=== PATIENT | male | born 1970 | race Caucasian/White ===

== ENCOUNTER 2024-01-24 13:39 | Emergency (ER) | payer MEDICAID ==
[~2024-01-24] VITALS: Ht 177.8 cm; Wt 84.0 kg
[2024-01-24 15:17] LABS: *AMPHETAMINES SCREEN URINE NEGATIVE (NEGATIVE); *BARBITURATES SCREEN URINE NEGATIVE (NEGATIVE); *BENZODIAZEPINES SCREEN URINE NEGATIVE (NEGATIVE); *COCAINE SCREEN URINE NEGATIVE (NEGATIVE); CANNABINOID URINE SCREEN NEGATIVE (NEGATIVE); METHADONE URINE SCREEN NEGATIVE (NEGATIVE); OPIATES URINE SCREEN NEGATIVE (NEGATIVE); PHENCYCLIDINE URINE SCREEN NEGATIVE (NEGATIVE)
[2024-01-24 15:18] LABS: ECSTASY MDMA SCREEN URINE NEGATIVE (NEGATIVE)
[2024-01-24] MEDS: LORAZEPAM 1MG TABLET PO ONE (16:00)
[2024-01-24 16:02] LABS: BASOPHILS % 0.8 % (0.0-2.0); EOSINOPHILS % 0.8 % (0.0-5.0); HEMATOCRIT. 46.8 % (42.0-52.0); HEMOGLOBIN. 15.9 g/dL (14.0-18.0); LYMPHOCYTES % 39.1 % (20.0-50.0); MEAN CORPUSCULAR HEMOGLOBIN 31.5 pg (28.0-32.0); MEAN CORPUSCULAR VOLUME 92.7 fL (80.0-94.0); MEAN PLATELET VOLUME 7.6 fl (7.4-10.4); MONOCYTES % 4.6 % (2.0-8.0); NEUTROPHILS % 54.7 % (40.0-76.0); PLATELET 219 x1000/uL (130-400); RED BLOOD CELL COUNT 5.05 mill/uL (4.7-6.1); WHITE BLOOD COUNT 6.5 x1000/uL (4.5-11.0)
[2024-01-24 16:14] LABS: CHLORIDE 114 mEq/L (98-107); POTASSIUM 3.8 mEq/L (3.5-5.1); SODIUM 145 mEq/L (136-145)
[2024-01-24 16:15] LABS: CARBON DIOXIDE 26 mEq/L (21-32)
[2024-01-24 16:16] LABS: CALCIUM 9.6 mg/dL (8.7-10.4)
[2024-01-24 16:20] LABS: CREATININE 0.9 mg/dL (0.6-1.3); GLUCOSE 112 mg/dL (70-105)
[2024-01-24 16:21] LABS: UREA NITROGEN BLOOD 10 mg/dL (9-23)
[2024-01-24 16:22] LABS: ACETAMINOPHEN < 2 ug/mL (10-30)
[2024-01-24 16:36] LABS: ETHANOL BLOOD 406 mg/dL (<10)
[2024-01-24] MEDS: DIPHENHYDRAMINE 50MG/ML VIAL IM ONE (19:48)
[2024-01-24] MEDS: HALOPERIDOL LACTATE 5MG/ML VIAL IM ONE (19:49)
[2024-01-24] MEDS: LORAZEPAM 2MG/ML INJ IM ONE (19:49)
[2024-01-24 20:30] VITALS: O2SAT 98
[2024-01-25] MEDS ORDERED: LORAZEPAM 2MG/ML INJ IM ONE (08:45)
[2024-01-25] MEDS: LORAZEPAM 2MG/ML INJ IM NR (09:05)
[2024-01-25 11:31] VITALS: BP 110/60; PULSE 77; RESP 18; TEMP 98.9
[2024-01-25] MEDS: FLUOXETINE HCL 20MG CAPSULE PO SCH (12:28)
[2024-01-25] MEDS ORDERED: GABAPENTIN 300MG CAPSULE PO SCH (14:00)
[2024-01-25] MEDS ORDERED: TRAZODONE HCL 50MG TABLET PO SCH (21:00)
== END 2024-01-25 13:08 | disposition home or self-care (01) ==
LOC: ER 14:04
DX: R45.851 Suicidal ideations (principal); E11.9 Type 2 diabetes mellitus without complications; Z20.822 Contact with and (suspected) exposure to COVID-19
CPT/HCPCS: 80305; 80048; 80307; 80329; 80320 ×2; 85025; 36415 ×2; 96372 ×2; 99285; 87426; J1200; J1630; J2060 ×2; G0480

== ENCOUNTER 2024-01-27 11:04 | Emergency (ER) | payer MEDICAID ==
[~2024-01-27] VITALS: Ht 170.2 cm; Wt 78.0 kg
[2024-01-27 11:47] LABS: CLARITY URINE CLEAR (CLEAR); COLOR URINE YELLOW (YELLOW); GLUCOSE URINE NEGATIVE (NEGATIVE); KETONES URINE NEGATIVE (NEGATIVE); LEUKOCYTE ESTERASE URINE NEGATIVE (NEGATIVE); NITRITE URINE NEGATIVE (NEGATIVE); OCCULT BLOOD URINE NEGATIVE (NEGATIVE); PH URINE 5.5 (4.5-8.0); PROTEIN URINE NEGATIVE (NEGATIVE); SPECIFIC GRAVITY URINE 1.007 (1.005-1.030); UROBILINOGEN URINE 0.2 E.U./dL (0.2-1.0)
[2024-01-27 12:04] LABS: *AMPHETAMINES SCREEN URINE NEGATIVE (NEGATIVE); *BARBITURATES SCREEN URINE NEGATIVE (NEGATIVE); *BENZODIAZEPINES SCREEN URINE NEGATIVE (NEGATIVE); *COCAINE SCREEN URINE NEGATIVE (NEGATIVE)
[2024-01-27 12:05] LABS: CANNABINOID URINE SCREEN NEGATIVE (NEGATIVE); ECSTASY MDMA SCREEN URINE NEGATIVE (NEGATIVE); METHADONE URINE SCREEN NEGATIVE (NEGATIVE); OPIATES URINE SCREEN NEGATIVE (NEGATIVE); PHENCYCLIDINE URINE SCREEN NEGATIVE (NEGATIVE)
[2024-01-27 12:10] VITALS: O2SAT 98
[2024-01-27 12:27] LABS: BASOPHILS % 1.1 % (0.0-2.0); EOSINOPHILS % 1.9 % (0.0-5.0); HEMATOCRIT. 48.6 % (42.0-52.0); LYMPHOCYTES % 45.7 % (20.0-50.0); MEAN CORPUSCULAR HEMOGLOBIN 31.6 pg (28.0-32.0); MEAN CORPUSCULAR VOLUME 90.4 fL (80.0-94.0); MEAN PLATELET VOLUME 7.7 fl (7.4-10.4); MONOCYTES % 6.6 % (2.0-8.0); NEUTROPHILS % 44.7 % (40.0-76.0); PLATELET 242 x1000/uL (130-400); RED BLOOD CELL COUNT 5.37 mill/uL (4.7-6.1); RED CELL DISTRIBUTION WIDTH 12.2 % (11.6-14.6)
[2024-01-27 12:32] LABS: CARBON DIOXIDE 27 mEq/L (21-32); CHLORIDE 107 mEq/L (98-107); POTASSIUM 3.7 mEq/L (3.5-5.1); SODIUM 146 mEq/L (136-145)
[2024-01-27 12:33] LABS: CALCIUM 9.7 mg/dL (8.7-10.4)
[2024-01-27 12:37] LABS: CREATININE 0.9 mg/dL (0.6-1.3)
[2024-01-27 12:38] LABS: GLUCOSE 105 mg/dL (70-105); UREA NITROGEN BLOOD 10 mg/dL (9-23)
[2024-01-27 12:39] LABS: ACETAMINOPHEN < 2 ug/mL (10-30)
[2024-01-27 12:47] LABS: ETHANOL BLOOD 358 mg/dL (<10)
[2024-01-27] MEDS: ONDANSETRON 4MG ODT PO ONE (15:58)
[2024-01-27] MEDS: CHLORDIAZEPOXIDE 25MG CAPSULE PO ONE (17:45)
[2024-01-27] MEDS: LORAZEPAM 2MG/ML INJ IM ONE (22:01)
[2024-01-27] MEDS: HALOPERIDOL LACTATE 5MG/ML VIAL IM ONE (22:01)
[2024-01-28] MEDS: TRAZODONE HCL 50MG TABLET PO SCH ×2 (00:22→21:17)
[2024-01-28] MEDS: DIPHENHYDRAMINE 25MG CAPSULE PO ONE (05:00)
[2024-01-28] MEDS: CHLORDIAZEPOXIDE 25MG CAPSULE PO ONE (07:06)
[2024-01-28] MEDS: HALOPERIDOL LACTATE 5MG/ML VIAL IM ONE (08:47)
[2024-01-28] MEDS: LORAZEPAM 2MG/ML INJ IM ONE (08:47)
[2024-01-28] MEDS: LORAZEPAM 1MG TABLET PO ONE ×2 (13:43→17:25)
[2024-01-28] MEDS: ONDANSETRON 4MG ODT PO ONE (15:05)
[2024-01-28 21:06] VITALS: BP 132/85; PULSE 89; RESP 16; TEMP 98.6
== END 2024-01-28 21:32 ==
LOC: ER 11:04
DX: R45.851 Suicidal ideations (principal); F11.10 Opioid abuse, uncomplicated; I10 Essential (primary) hypertension; Z20.822 Contact with and (suspected) exposure to COVID-19; Z98.890 Other specified postprocedural states
CPT/HCPCS: 80305; 80048; 81003; 80307; 80329; 80320 ×2; 85025; 36415 ×2; 96372 ×2; 99285; 87426; Q0162 ×2; J1630 ×2; J2060 ×2; Q0163; Z7610 ×2; G0480

== ENCOUNTER 2024-01-31 17:58 | Emergency (ER) | payer MEDICAID ==
[~2024-01-31] VITALS: Ht 177.8 cm; Wt 93.0 kg
[2024-01-31 18:00] VITALS: O2SAT 96
[2024-01-31 19:12] LABS: BASOPHILS % 0.8 % (0.0-2.0); HEMATOCRIT. 43.1 % (42.0-52.0); HEMOGLOBIN. 14.6 g/dL (14.0-18.0); LYMPHOCYTES % 43.9 % (20.0-50.0); MEAN CORPUSCULAR HEMOGLOBIN 31.9 pg (28.0-32.0); MEAN CORPUSCULAR HGB CONC 33.8 g/dL (31.0-37.0); MEAN CORPUSCULAR VOLUME 94.3 fL (80.0-94.0); MEAN PLATELET VOLUME 7.8 fl (7.4-10.4); MONOCYTES % 5.7 % (2.0-8.0); NEUTROPHILS % 47.6 % (40.0-76.0); PLATELET 193 x1000/uL (130-400); RED BLOOD CELL COUNT 4.58 mill/uL (4.7-6.1); RED CELL DISTRIBUTION WIDTH 12.1 % (11.6-14.6); WHITE BLOOD COUNT 5.8 x1000/uL (4.5-11.0)
[2024-01-31 19:16] LABS: CHLORIDE 108 mEq/L (98-107); POTASSIUM 4.1 mEq/L (3.5-5.1); SODIUM 143 mEq/L (136-145)
[2024-01-31 19:17] LABS: CARBON DIOXIDE 25 mEq/L (21-32)
[2024-01-31 19:18] LABS: CALCIUM 8.9 mg/dL (8.7-10.4)
[2024-01-31 19:22] LABS: CREATININE 0.9 mg/dL (0.6-1.3); GLUCOSE 92 mg/dL (70-105); UREA NITROGEN BLOOD 15 mg/dL (9-23)
[2024-01-31 19:23] LABS: ETHANOL BLOOD 256 mg/dL (<10)
[2024-01-31] MEDS: LORAZEPAM 2MG/ML INJ IV ONE (20:41)
[2024-01-31] MEDS: SODIUM CHLORIDE 0.9% 1,000 ML IV ONE (20:41)
[2024-01-31 21:54] LABS: *AMPHETAMINES SCREEN URINE NEGATIVE (NEGATIVE); *BARBITURATES SCREEN URINE NEGATIVE (NEGATIVE); *BENZODIAZEPINES SCREEN URINE PRESUMPTIVE POSITIVE (NEGATIVE); *COCAINE SCREEN URINE NEGATIVE (NEGATIVE); CANNABINOID URINE SCREEN NEGATIVE (NEGATIVE); ECSTASY MDMA SCREEN URINE CONF.TEST INDICATED (NEGATIVE); METHADONE URINE SCREEN NEGATIVE (NEGATIVE); OPIATES URINE SCREEN NEGATIVE (NEGATIVE); PHENCYCLIDINE URINE SCREEN NEGATIVE (NEGATIVE)
[2024-02-01 00:30] VITALS: BP 132/91; PULSE 97; RESP 18; TEMP 98.1
== END 2024-02-01 01:26 | disposition home or self-care (01) ==
LOC: ER 17:58
DX: F10.229 Alcohol dependence with intoxication, unspecified (principal); F32.9 Major depressive disorder, single episode, unspecified; Y90.9 Presence of alcohol in blood, level not specified
CPT/HCPCS: 80305; 80048; 80320; 85025; 36415; 96361; 96374; 99285; J2060; J7030; G0480

== ENCOUNTER 2024-05-19 16:33 | Emergency (ER) | payer MEDICAID ==
[~2024-05-19] VITALS: Ht 175.3 cm; Wt 90.0 kg
[2024-05-19 16:35] VITALS: O2SAT 94
[2024-05-19 20:25] LABS: BASOPHILS % 1.1 % (0.0-2.0); EOSINOPHILS % 3.1 % (0.0-5.0); HEMATOCRIT. 42.2 % (42.0-52.0); HEMOGLOBIN. 14.3 g/dL (14.0-18.0); LYMPHOCYTES % 33.6 % (20.0-50.0); MEAN CORPUSCULAR HEMOGLOBIN 32.4 pg (28.0-32.0); MEAN CORPUSCULAR HGB CONC 33.9 g/dL (31.0-37.0); MEAN CORPUSCULAR VOLUME 95.6 fL (80.0-94.0); MEAN PLATELET VOLUME 8.4 fl (7.4-10.4); MONOCYTES % 5.5 % (2.0-8.0); NEUTROPHILS % 56.7 % (40.0-76.0); PLATELET 204 x1000/uL (130-400); RED BLOOD CELL COUNT 4.41 mill/uL (4.7-6.1); RED CELL DISTRIBUTION WIDTH 13.8 % (11.6-14.6); WHITE BLOOD COUNT 5.5 x1000/uL (4.5-11.0)
[2024-05-19 20:34] LABS: CHLORIDE 113 mEq/L (98-107); POTASSIUM 3.6 mEq/L (3.5-5.1); SODIUM 146 mEq/L (136-145)
[2024-05-19 20:35] LABS: CALCIUM 8.6 mg/dL (8.7-10.4); CARBON DIOXIDE 26 mEq/L (21-32)
[2024-05-19 20:40] LABS: CREATININE 0.7 mg/dL (0.6-1.3); GLUCOSE 114 mg/dL (70-105); UREA NITROGEN BLOOD 16 mg/dL (9-23)
[2024-05-19 20:42] LABS: ACETAMINOPHEN < 2 ug/mL (10-30)
[2024-05-19 20:50] LABS: ETHANOL BLOOD 356 mg/dL (<10)
[2024-05-19] MEDS: APIXABAN 5 MG TABLET PO SCH (21:00)
[2024-05-20 05:01] LABS: CLARITY URINE CLEAR (CLEAR); COLOR URINE YELLOW (YELLOW); GLUCOSE URINE NEGATIVE (NEGATIVE); KETONES URINE TRACE (NEGATIVE); LEUKOCYTE ESTERASE URINE NEGATIVE (NEGATIVE); NITRITE URINE NEGATIVE (NEGATIVE); OCCULT BLOOD URINE NEGATIVE (NEGATIVE); PH URINE 5.5 (4.5-8.0); PROTEIN URINE NEGATIVE (NEGATIVE); SPECIFIC GRAVITY URINE 1.026 (1.005-1.030); UROBILINOGEN URINE 0.2 E.U./dL (0.2-1.0)
[2024-05-20 05:09] LABS: *AMPHETAMINES SCREEN URINE PRESUMPTIVE POSITIVE (NEGATIVE)
[2024-05-20 05:10] LABS: *BARBITURATES SCREEN URINE NEGATIVE (NEGATIVE); *BENZODIAZEPINES SCREEN URINE NEGATIVE (NEGATIVE); *COCAINE SCREEN URINE NEGATIVE (NEGATIVE); CANNABINOID URINE SCREEN PRESUMPTIVE POSITIVE (NEGATIVE); ECSTASY MDMA SCREEN URINE CONF.TEST INDICATED (NEGATIVE); METHADONE URINE SCREEN NEGATIVE (NEGATIVE); OPIATES URINE SCREEN NEGATIVE (NEGATIVE); PHENCYCLIDINE URINE SCREEN NEGATIVE (NEGATIVE)
[2024-05-20 10:24] LABS: TROPONIN I HIGH SENSITIVITY < 4 ng/L (3.0-53)
[2024-05-20] MEDS: LORAZEPAM 1MG TABLET PO ONE (10:42)
[2024-05-20 12:21] LABS: TROPONIN I HIGH SENSITIVITY < 4 ng/L (3.0-53)
[2024-05-20] MEDS ORDERED: L10 MT (12:31)
[2024-05-20 12:36] VITALS: BP 124/80; PULSE 90; RESP 16; TEMP 37.05852; O2SAT 99
[2024-05-21] MEDS ORDERED: FLUOXETINE HCL 10 MG CAPSULE PO SCH (09:00)
== END 2024-05-20 12:49 | disposition home or self-care (01) ==
LOC: ER 16:33
DX: R45.851 Suicidal ideations (principal); F10.229 Alcohol dependence with intoxication, unspecified; F32.9 Major depressive disorder, single episode, unspecified; Z86.711 Personal history of pulmonary embolism; Z20.822 Contact with and (suspected) exposure to COVID-19; Y90.8 Blood alcohol level of 240 mg/100 ml or more
CPT/HCPCS: 36415; 71045; 80048; 80305; 80307; 80320; 80329; 81003; 84484; 85025; 85379; 87426; 93005; 99285; G0480

== ENCOUNTER 2024-09-17 18:55 | Emergency (ER) | payer MEDICAID ==
[~2024-09-17] VITALS: Ht 177.8 cm; Wt 85.0 kg
[~2024-09-17 18:55] MED LIST: L10 MT
[2024-09-17 18:58] VITALS: BP 130/74; PULSE 76; RESP 18; TEMP 98.7; O2SAT 99
[2024-09-17 23:43] LABS: CHLORIDE 107 mEq/L (98-107); POTASSIUM 4.4 mEq/L (3.5-5.1); SODIUM 143 mEq/L (136-145)
[2024-09-17 23:44] LABS: CALCIUM 8.8 mg/dL (8.7-10.4); CARBON DIOXIDE 23 mEq/L (21-32); HEMATOCRIT 43.4 % (42.0-52.0); HEMOGLOBIN 14.9 g/dL (14.0-18.0); MEAN CORPUSCULAR HEMOGLOBIN 32.3 pg (28.0-32.0); MEAN CORPUSCULAR HGB CONC 34.3 g/dL (31.0-37.0); MEAN CORPUSCULAR VOLUME 94.1 fL (80.0-94.0); PLATELET 197 x1000/uL (130-400); RED BLOOD CELL COUNT 4.61 mill/uL (4.7-6.1); RED CELL DISTRIBUTION WIDTH 12.9 % (11.6-14.6); WHITE BLOOD COUNT 5.2 x1000/uL (4.5-11.0)
[2024-09-17 23:49] LABS: CREATININE 0.8 mg/dL (0.6-1.3); GLUCOSE 80 mg/dL (70-105); UREA NITROGEN BLOOD 11 mg/dL (9-23)
[2024-09-17 23:50] LABS: ETHANOL BLOOD 232 mg/dL (<10)
== END 2024-09-18 05:25 | disposition home or self-care (01) ==
LOC: ER 18:55
DX: F10.129 Alcohol abuse with intoxication, unspecified (principal); E11.9 Type 2 diabetes mellitus without complications; Y90.9 Presence of alcohol in blood, level not specified; Z88.0 Allergy status to penicillin
CPT/HCPCS: 36415; 80048; 80320; 85027; 99283; G0480

== ENCOUNTER 2024-09-24 12:07 | Emergency (ER) | payer MEDICAID ==
[~2024-09-24] VITALS: Ht 175.3 cm; Wt 82.0 kg
[2024-09-24 12:11] VITALS: BP 118/76; PULSE 67; RESP 18; TEMP 97.9; O2SAT 97
== END 2024-09-24 17:06 | disposition home or self-care (01) ==
LOC: ER 12:13
DX: F10.129 Alcohol abuse with intoxication, unspecified (principal); E11.9 Type 2 diabetes mellitus without complications; Z88.0 Allergy status to penicillin; Y90.9 Presence of alcohol in blood, level not specified
CPT/HCPCS: 99283

== ENCOUNTER 2024-09-24 18:46 | Emergency (ER) | payer MEDICAID ==
[~2024-09-24] VITALS: Ht 180.3 cm; Wt 96.0 kg
[2024-09-24 18:51] VITALS: BP 113/72; PULSE 91; RESP 14; TEMP 99; O2SAT 95
== END 2024-09-24 22:12 | disposition home or self-care (01) ==
LOC: ER 18:46
DX: F10.129 Alcohol abuse with intoxication, unspecified (principal); E11.9 Type 2 diabetes mellitus without complications; Z59.00 Homelessness unspecified; Y90.9 Presence of alcohol in blood, level not specified
CPT/HCPCS: 99284

== ENCOUNTER 2024-09-25 16:48 | Emergency (ER) | payer MEDICAID ==
[~2024-09-25] VITALS: Ht 172.7 cm; Wt 75.0 kg
[2024-09-25 16:52] VITALS: BP 121/72; PULSE 89; RESP 16; TEMP 98.3; O2SAT 94
[2024-09-25 20:30] LABS: BASOPHILS % 1.2 % (0.0-2.0); HEMATOCRIT. 45.7 % (42.0-52.0); HEMOGLOBIN. 15.5 g/dL (14.0-18.0); LYMPHOCYTES % 48.3 % (20.0-50.0); MEAN CORPUSCULAR HEMOGLOBIN 32.5 pg (28.0-32.0); MEAN CORPUSCULAR VOLUME 95.5 fL (80.0-94.0); MEAN PLATELET VOLUME 7.7 fl (7.4-10.4); MONOCYTES % 4.8 % (2.0-8.0); NEUTROPHILS % 44.7 % (40.0-76.0); PLATELET 211 x1000/uL (130-400); RED BLOOD CELL COUNT 4.78 mill/uL (4.7-6.1); RED CELL DISTRIBUTION WIDTH 13.8 % (11.6-14.6); WHITE BLOOD COUNT 5.5 x1000/uL (4.5-11.0)
[2024-09-25 20:41] LABS: CHLORIDE 108 mEq/L (98-107); POTASSIUM 4.2 mEq/L (3.5-5.1); SODIUM 147 mEq/L (136-145)
[2024-09-25 20:42] LABS: CALCIUM 8.9 mg/dL (8.7-10.4); CARBON DIOXIDE 26 mEq/L (21-32)
[2024-09-25 20:46] LABS: CREATININE 0.7 mg/dL (0.6-1.3)
[2024-09-25 20:47] LABS: GLUCOSE 98 mg/dL (70-105); UREA NITROGEN BLOOD 8 mg/dL (9-23)
[2024-09-25 21:09] LABS: ETHANOL BLOOD 410 mg/dL (<10)
== END 2024-09-26 08:01 | disposition left against medical advice (07) ==
LOC: ER 16:48
DX: R41.82 Altered mental status, unspecified (principal); F10.129 Alcohol abuse with intoxication, unspecified; E11.9 Type 2 diabetes mellitus without complications; Z88.0 Allergy status to penicillin; Y90.8 Blood alcohol level of 240 mg/100 ml or more
CPT/HCPCS: 36415; 80048; 80320; 85025; 99283; G0480